=== PATIENT | female | born 1975 | race Asian ===

== ENCOUNTER 2020-07-08 15:16 | Observation (INO) | payer BC ==
[~2020-07-08] VITALS: Ht 167.6 cm; Wt 115.7 kg
[2020-07-08] MEDS ORDERED: SODIUM CHLORIDE 0.9% 1000ML 1,000 ML IV STA (15:34)
[2020-07-08 15:46] LABS: BASOPHILS # (AUTO) 0.1 (0.0-0.1); BASOPHILS % 0.7 % (0.0-1.0); EOSINOPHILS # (AUTO) 0.4 (0.0-0.4); EOSINOPHILS % 4.4 % (0.0-6.0); HEMATOCRIT 28.9 % (34.2-44.1); HEMOGLOBIN 7.1 g/dL (12.0-16.0); LYMPHOCYTES # (AUTO) 2.2 (1.0-3.2); LYMPHOCYTES % 26.2 % (18.0-39.1); MEAN CORPUSCULAR HEMOGLOBIN 15.2 pg (28-32); MEAN CORPUSCULAR HGB CONC 24.6 g/dL (31-35); MEAN CORPUSCULAR VOLUME 61.8 fL (81-99); MONOCYTES # (AUTO) 0.7 (0.2-0.8); MONOCYTES % 7.8 % (4.4-11.3); NEUTROPHILS # (AUTO) 5.1 (2.1-6.9); NEUTROPHILS % 60.4 % (38.7-80.0); PLATELET COUNT 319 x10e3/uL (140-360); RED BLOOD COUNT 4.68 x10e6/uL (3.6-5.1); RED CELL DISTRIBUTION WIDTH 20.7 % (11.7-14.4)
[2020-07-08 16:01] LABS: INR 0.86; PROTHROMBIN TIME 12.2 seconds (11.9-14.5)
[2020-07-08 16:02] LABS: PARTIAL THROMBOPLASTIN TIME 28.5 seconds (23.8-35.5)
[2020-07-08 16:05] LABS: ALANINE AMINOTRANSFERASE 10 IU/L (0-55); ALBUMIN 3.9 g/dL (3.5-5.0); ALBUMIN/GLOBULIN RATIO 0.9 (0.8-2.0); ALKALINE PHOSPHATASE 66 IU/L (40-150); ANISOCYTOSIS SLIGHT; BLOOD UREA NITROGEN 9 mg/dL (7-26); BUN/CREATININE RATIO 12 (6-25); CARBON DIOXIDE 21 mmol/L (22-29); CHLORIDE 105 mmol/L (98-107); CREATINE KINASE 60 IU/L (29-168); CREATININE, SERUM 0.73 mg/dL (0.57-1.11); EST GLOMERULAR FILTRATION RATE > 60 ML/MIN (60-); GLUCOSE 106 mg/dL (74-118); HYPOCHROMASIA SLIGHT; MICROCYTOSIS SLIGHT; PLATELET ESTIMATE ADEQUATE; PLATELET MORPHOLOGY COMMENT NORMAL; SODIUM 138 mmol/L (136-145)
[2020-07-08] MEDS ORDERED: ACETAMINOPHEN 325 MG TAB PO PRN (17:00)
[2020-07-08] MEDS ORDERED: ONDANSETRON HCL INJ 2MG/ML 2ML 2 MG/ML VIAL IV PRN (17:00)
[2020-07-08] MEDS ORDERED: SODIUM CHLORIDE 0.9% 1000ML 1,000 ML IV ONE (17:00)
[2020-07-08 17:14] LABS: % IRON SATURATION 3 % (15-50); IRON 22 ug/dL (50-170); TOTAL IRON BINDING CAPACITY 634 ug/dL (261-478); TRANSFERRIN 453 mg/dL (180-382)
[2020-07-08 20:00] VITALS: BP 139/85
[2020-07-08 20:29] VITALS: BP 139/85
[2020-07-08 21:00] VITALS: BP 139/85
[2020-07-09] VITALS: BP 148/88
[2020-07-09 04:00] VITALS: BP 127/72
[2020-07-09 06:24] LABS: BASOPHILS # (AUTO) 0.1 (0.0-0.1); BASOPHILS % 0.8 % (0.0-1.0); EOSINOPHILS # (AUTO) 0.3 (0.0-0.4); EOSINOPHILS % 4.5 % (0.0-6.0); HEMATOCRIT 30.1 % (34.2-44.1); HEMOGLOBIN 7.8 g/dL (12.0-16.0); MEAN CORPUSCULAR HEMOGLOBIN 16.8 pg (28-32); MEAN CORPUSCULAR HGB CONC 25.9 g/dL (31-35); MEAN CORPUSCULAR VOLUME 64.9 fL (81-99); MONOCYTES # (AUTO) 0.6 (0.2-0.8); MONOCYTES % 8.8 % (4.4-11.3); NEUTROPHILS # (AUTO) 4.1 (2.1-6.9); NEUTROPHILS % 57.6 % (38.7-80.0); PLATELET COUNT 225 x10e3/uL (140-360); RED BLOOD COUNT 4.64 x10e6/uL (3.6-5.1); RED CELL DISTRIBUTION WIDTH 22.5 % (11.7-14.4)
[2020-07-09 08:29] VITALS: BP 124/82
[2020-07-09 09:10] VITALS: BP 124/82
[2020-07-09 12:03] VITALS: BP 113/77
[2020-07-09] MEDS ORDERED: HYDRALAZINE HCL 20 MG/ML VIAL IV PRN (13:45)
[2020-07-09] MEDS ORDERED: MELATONIN 5 MG TABLET PO PRN (13:45)
[2020-07-09 13:53] LABS: HEMATOCRIT 31.3 % (34.2-44.1); HEMOGLOBIN 7.9 g/dL (12.0-16.0)
[2020-07-09] MEDS ORDERED: MELATONIN5 M2 PO (16:35)
[2020-07-09 16:56] VITALS: BP 144/95
[2020-07-10] MEDS ORDERED: PANTOPRAZOLE SOD 40 MG TABEC PO SCH (07:30)
== END 2020-07-09 17:05 | disposition home or self-care (01) ==
LOC: ER 15:23 → ERHOLD 16:58 → MED/SURG2 19:50
PROVIDERS: ADMIT Internal Medicine; ATTEND Internal Medicine
DX: D50.9 Iron deficiency anemia, unspecified (principal); Z80.1 Family history of malignant neoplasm of trachea, bronchus and lung; Z80.3 Family history of malignant neoplasm of breast; E66.01 Morbid (severe) obesity due to excess calories; Z68.41 Body mass index [BMI] 40.0-44.9, adult; E55.9 Vitamin D deficiency, unspecified
CPT/HCPCS: 36415 ×2; 36430; 80053; 82550; 82553; 83540; 84466; 84484; 84702; 85014; 85018; 85025 ×2; 85610; 85730; 86850; 86900; 86920; 99284; G0378 ×2; J7030; P9016; U0002

== ENCOUNTER 2024-10-31 11:44 | Emergency (ER) | payer OTHER ==
[~2024-10-31] VITALS: Ht 167.6 cm; Wt 124.7 kg
[~2024-10-31 11:44] MED LIST: MELATONIN5 M2 PO
[2024-10-31 11:45] VITALS: PULSE 88; RESP 16; TEMP 98.1; O2SAT 100
[2024-10-31] MEDS: ONDANSETRON HCL 4 MG ORAL DISINTEGRATING TAB PO ONE (12:10)
[2024-10-31] MEDS: MECLIZINE HCL 12.5 MG TAB PO ONE (12:10)
[2024-10-31] MEDS ORDERED: MECLIZINE HCL12.5 MG PO (13:44)
[2024-10-31] MEDS ORDERED: ONDANSETRON ODT4 MG PO (13:44)
== END 2024-10-31 14:00 | disposition home or self-care (01) ==
LOC: ER 11:55
DX: R42 Dizziness and giddiness (principal); R11.0 Nausea; R51.9 Headache, unspecified; I10 Essential (primary) hypertension; E11.9 Type 2 diabetes mellitus without complications; E78.5 Hyperlipidemia, unspecified
CPT/HCPCS: 99283; J8597; Q0162